=== PATIENT | male | born 1975 | race Caucasian/White ===

== ENCOUNTER 2024-06-04 08:03 | Day surgery (SDC) | payer OTHER ==
--- NOTE | 2024-06-04 10:34 | XRAY ---
Indication: Left L4-S1 transforaminal AGUEDA. Intraoperative fluoroscopy provided for 34 seconds. 7 digital spot image submitted for interpretation demonstrates posterior needle tips projecting over expected left L4 and L5 nerve roots. Small amount of contrast injected for needle tip placement. Correlate with intraoperative findings/report.
--- NOTE | 2024-06-04 10:35 | XRAY ---
Indication: Left piriformis injection. Intraoperative fluoroscopy provided for 11 seconds. Single digital spot image submitted for interpretation demonstrates posterior needle tip projecting over left piriformis. Small amount of contrast injected for needle tip placement. Correlate with intraoperative findings/report.
--- NOTE | 2024-06-04 10:41 | XRAY ---
34 seconds of fluoroscopy was used in an attempted left L4-S1 transforaminal AGUEDA. Level L4-L5 was not completed in full due to patient intolerance. Contrast was injected at this level; however, the steroid was not injected. At level L5-S1, the procedure was completed in its entirety.
--- NOTE | 2024-06-04 10:42 | XRAY ---
11 seconds of fluoroscopy was used in surgery for a left piriformis injection.
== END 2024-06-04 10:15 | disposition home or self-care (01) ==
LOC: SDC-PAIN 08:03
PROVIDERS: ATTEND Psychiatry & Neurology Pain Medicine
DX: M54.16 Radiculopathy, lumbar region (principal); M79.18 Myalgia, other site
CPT/HCPCS: 20552; 64483; 64484; 72100; 72170; 77002; 77003; Q9966